=== PATIENT | female | born 1995 | race Caucasian/White ===

== ENCOUNTER 2018-02-09 16:43 | Outpatient (CLI) | END 2018-02-09 17:50 | disposition home or self-care (01) ==

== ENCOUNTER 2018-04-09 08:56 | Inpatient (IN) | END 2018-04-14 15:11 | disposition home or self-care (01) | DRG 766 ==

== ENCOUNTER 2018-05-06 21:41 | Emergency (ER) | END 2018-05-07 01:33 | disposition home or self-care (01) ==

== ENCOUNTER 2018-06-01 12:57 | Emergency (ER) | END 2018-06-01 17:30 | disposition home or self-care (01) ==

== ENCOUNTER 2018-09-30 09:43 | Emergency (ER) | END 2018-09-30 12:08 | disposition home or self-care (01) ==

== ENCOUNTER 2019-05-20 01:10 | Inpatient (IN) | payer OTHER ==
[~2019-05-20] VITALS: Ht 162.6 cm; Wt 86.5 kg
[~2019-05-20 01:10] MED LIST: ACET500C5 PO; AMOX1TAB10 PO; CEPH-443 PO; FER325 PO; IBUP-1542 PO; PREN-93 PO
[2019-05-20 01:21] VITALS: Ht 162.6 cm; Wt 86.5 kg
[2019-05-20] MEDS ORDERED: LACTATED RINGER'S 1,000 ML IV SCH (01:31)
[2019-05-20] MEDS ORDERED: CEFAZOLIN 2 GM/50 ML (PMX) 50 ML IVPB SCH (02:00)
[2019-05-20] MEDS ORDERED: MISOPROSTOL 200 MCG TAB PR PRN ×2 (02:00→18:00)
[2019-05-20] MEDS ORDERED: OXYTOCIN 30 UNITS/LR 500 ML IV SCH ×2 (02:00→17:49)
[2019-05-20] MEDS ORDERED: CARBOPROST 250 MCG INJ IM PRN ×2 (02:00→18:00)
[2019-05-20] MEDS ORDERED: METHYLERGONOVINE 0.2 MG INJ IM PRN ×2 (02:00→18:00)
[2019-05-20] MEDS ORDERED: OXYTOCIN 30 UNITS/LR 500 ML IV PRN ×2 (02:00→18:00)
[2019-05-20] MEDS ORDERED: ACETAMINOPHEN 325 MG TAB PO ONE (05:30)
--- NOTE | 2019-05-20 07:11 | PREAC ---
Date/Time of Note Date/Time of Note DATE: 05/20/19 TIME: 07:09 Anesthesia Eval and Record Evaluation Time Pre-Procedure Interview DATE: 05/20/19 TIME: 07:09 Age 23 Sex female NPO: 8 hrs Preoperative diagnosis iup at 39 weeks Planned procedure repeat c section Past Medical History Past Medical History: Includes GI: Obesity Heme: Anemia Surgery & Anesthesia Issues No known issue Meds Anticoagulation: No Beta Rossy within 24 hr: No Reason Beta Rossy not given: Pt. not on B-Rossy Active Scripts Cephalexin* (Keflex*) 500 Mg Capsule, 500 MG PO QID for 7 Days, CAP Prov:RICHMOND PULIDO PA-C 09/30/18 Amoxicillin/Potassium Clav (Amox-Clav 875-125 mg Tablet) 875-125 mg Tab, 1 TAB PO BID for 7 Days, #14 TAB Prov:RAFFI MAS MD 06/01/18 Acetaminophen* (Tylophen*) 500 Mg Capsule, 1 CAP PO Q6H PRN for PAIN AND OR ELEVATED TEMP, #15 CAP Prov:RAFFI MAS MD 06/01/18 Ibuprofen* (Motrin*) 600 Mg Tab, 600 MG PO Q6, #15 TAB Prov:RAFFI MAS MD 06/01/18 Ibuprofen* (Motrin*) 600 Mg Tab, 600 MG PO Q6, #30 TAB Prov:PATRICIA MCKENNA PA-C 05/07/18 Reported Medications Ferrous Sulfate* (Ferrous Sulfate*) 325 Mg Tabec, 325 MG PO DAILY, TAB 02/09/18 Vit No.124/Iron/FA ( Vitamin Tablet) 1 Each Tablet, 1 EACH PO DAILY, TAB 02/09/18 Current Medications Lactated Ringer's 1,000 ml @ 125 mls/hr Q8H IV Last administered on 05/20/19at 02:04; Admin Dose 125 MLS/HR; Start 05/20/19 at 01:31 Cefazolin Sodium/ Dextrose 50 ml @ 100 mls/hr ONCE IVPB ; Start 05/20/19 at 02:00 Oxytocin/Lactated Ringer's 500 ml @ 125 mls/hr POST IV ; Start 05/20/19 at 02:00 Oxytocin/Lactated Ringer's 500 ml @ 0 mls/hr ONCE PRN IV .VAGINAL BLEEDING; Start 05/20/19 at 02:00 Methylergonovine Maleate (Methergine) 0.2 mg ONCE PRN IM .VAGINAL BLEEDING; Start 05/20/19 at 02:00 Carboprost Tromethamine (Hemabate) 250 mcg ONCE PRN IM .VAGINAL BLEEDING; Start 05/20/19 at 02:00 Misoprostol (Cytotec) 1,000 mcg ONCE PRN WI .VAGINAL BLEEDING; Start 05/20/19 at 02:00 Meds reviewed: Yes Allergies Coded Allergies: No Known Allergy (Unverified , 02/09/18) Allergies Reviewed: Yes Labs/Studies Labs Reviewed: Reviewed by anesthesiologist Result Diagram: 05/20/19 0155 Laboratory Tests 05/20/19 01:55 Blood Bank Test 05/20/19 01:55 Antibody Screen NEGATIVE Blood Type O POSITIVE Rh Immune Globulin Candidate NO test: Positive Pre-procedure Exam Airway: Adequate mouth opening, Adequate thyromental dist Mallampati: Mallampati I Teeth: Normal Lung: Normal Heart: Normal ASA Physical Status ASA physical status: 2 Emergency: None Planned Anesthetic Neuraxial: Spinal Planned Pain Management Sub-arachniod narcotics, Parenteral pain med Pre-operative Attestations Prior to commencing anesthesia and surgery, the patient was re-evaluated, there was verification of: *The patient's identity *The results of appropriate recent lab work and preoperative vital signs *The above evaluation not changing prior to induction *Anesthetic plan, risk benefits, alternative and complications discussed with patient/family; questions answered; patient/family understands, accepts and wishes to proceed. RONAK DEJESUS May 20, 2019 07:10
[2019-05-20] MEDS ORDERED: morphine SULFATE/PF (10 MG/10 ML) INJ ONE (07:31)
[2019-05-20] MEDS ORDERED: FENTAnyl 50 MCG/ML VIAL ONE (07:31)
[2019-05-20] MEDS ORDERED: AZITHROMYCIN 500 MG in SOD CHLORIDE 0.9% 250 ML IVPB STA (07:40)
[2019-05-20] MEDS ORDERED: DEXAMETHASONE 4 MG/ML 1 ML INJ ONE (07:42)
[2019-05-20] MEDS ORDERED: ONDANSETRON 4 MG INJ ONE (07:42)
--- NOTE | 2019-05-20 07:52 | HP ---
Date/Time of Note Date/Time of Note DATE: 05/20/19 TIME: 07:45 OB - History Hx of Present Free Text/Dictation 23 years old 2 para 1-0-0-1 with single intrauterine at 39 weeks 1 day with history of previous delivery complaining of uterine contractions. She states good movement. She denies nausea, vomiting, shortness of breath, chest pain, headache, visual changes, vaginal bleeding or LOF. Chief Complaint: History of previous delivery complaining of uterine contractions Estimated Due Date: May 26, 2019 : 2 Para: 1 Spontaneous : 0 Therapeutic : 0 Care: Good Care Ultrasounds: Normal mid trimester US Obstetrical Complications: None Medical Complications: None Past Family/Social History * Past Medical, Surgical, Family and Obstetric Histories reviewed from chart. Blood Type: O+ Rubella: immune RPR/VDRL: Negative (Immune) GBS Status: Positive HBsAG: Negative OB Admission Exam Vital Signs Vital Signs Blood pressure 110/62, pulse rate 70/minutes, respiratory rate 16/minutes, temperature 98.1 Physical Exam HEENT: WNL Heart: Rhythm Normal Lungs: Clear Abdomen: WNL Extremities: Normal Cervical Dilatation: 4cm (24 5 cm) Effacement: 75% Station: -2 Membranes: Intact Heart Rate: 130's Accelerations: Accelerations Present Decelerations: No Decelerations Varibility: Moderate Contractions on Admission: < 5 Minutes Apart (To 5 cm) Intensity: Moderate Last 72 hours Lab Results CBC & BMP 05/20/19 01:55 OB Assessment/Plan Other plan: 23 years old 2 para 1-0-0-1 with previous delivery in labor. She desires repeat delivery. She declined TOLAC. -FHR: No sign of metabolic acidosis- Category I -Continuous EFM, toco -CBC, blood type and screen -Vaginal prep with Betadine -Ancef 2 g IV 30 minutes before surgery and a azithromycin 500 mg IV -Please see the orders -O+/Rubella: Immune -GBS: Positive, ampicillin given The risk of delivery including but not limited to bleeding, infection, injury to other organs (bowel, bladder, ureter, vessels, nerves), injury to fetus, blood transfusion, blood transfusion related infection, risk of anesthesia, adhesion, needs for future , removal of uterus or any other indicated surgery was discussed with the patient and her family. She expressed understanding. All of her questions were answered. She signed the informed consent. PHYSICIAN'S VERIFICATION OF INFORMED CONSENT The patient was counseled regarding the procedure, its indications, risks, potential complications and alternatives and any questions were answered. Consent was obtained. PLANNED PROCEDURE/TREATMENT: delivery with possible using vacu um/forceps and any other indicated surgery PHYSICIAN'S VERIFICATION OF INFORMED CONSENT FOR BLOOD TRANSFUSION: There is a reasonable possibility that blood transfusion will be necessary as a result of the patient's procedure. I have discussed the following with the patient/patient's legal field sales representative: An explanation of the benefits and risks of the transfusion of blood or blood products and the possible alternatives. All questions have been answered to the patient's satisfaction. INFORMED CONSENT:The patient has been informed of: The nature of the proposed care, treatment, services, medications, interventions or procedures. Potential benefits, risks or side effects, including potential problems related to recuperation. The likelihood of achieving care treatment and service goals. Reasonable alternatives to the proposed care, treatment and service. The relevant risks, benefits and side effects related to alternatives, including the possible results of not receiving care, treatment and services. When indicated, any limitations on the confidentiality of information learned from or about the patient. If appropriate, the risks, benefits and alternatives of the drugs to be used for sedation/analgesia including moderate sedation. If appropriate, patient has been provided information on the risks, benefits and alternatives to the transfusion of blood and/or blood products. If appropriate, patient has been provided information regarding the [employer] Blood Act. GERMAIN RUBIO May 20, 2019 07:52
[2019-05-20] MEDS ORDERED: PHENYLephrine (100 MCG/ML) 10ML SYG ONE (08:03)
[2019-05-20] MEDS ORDERED: NALOXONE (0.4 MG/ML) INJ IV PRN (09:00)
[2019-05-20] MEDS ORDERED: HYDROmorphONE 0.5 MG/0.5 ML SYG IV PRN ×2 (09:00)
[2019-05-20] MEDS ORDERED: DIPHENHYDRAMINE 50 MG INJ IV PRN (09:00)
[2019-05-20] MEDS ORDERED: ONDANSETRON 4 MG INJ IV PRN (09:00)
[2019-05-20] MEDS ORDERED: ZOLPIDEM 5 MG TAB PO PRN (09:00)
[2019-05-20] MEDS ORDERED: KETOROLAC 30 MG INJ IV PRN (09:00)
--- NOTE | 2019-05-20 09:49 | OPR ---
Operative Report Planned Procedure Procedure date May 20, 2019 Procedure(s) Repeat low transverse delivery Performed by see signature line Disease And Insect Control Boss: DARON SOSA MD Anesthesiologist: RONAK DEJESUS Pre-procedure diagnosis 23 years old 2 para 1-0-0-1 with single intrauterine at the 39 weeks and 1 day and previous delivery in labor. She desires a repeat delivery. She declined TOLAC [id number] Anesthesia Type: [id number] spinal Post-Procedure Post-procedure diagnosis 23 years old 2 para 1-0-0-1 with single intrauterine at the 39 weeks and 1 day and previous delivery in labor. She desires a repeat delivery. She declined TOLAC Findings 1. Normal uterus, fallopian tubes and ovaries 2. Viable female in cephalic presentation. 9 at one minute and 9 in 5 minutes. Weight: 7 pounds 14 oz-3575 g. Time of delivery: 08: 05 3. Placenta with three vessel cord 4. Amniotic fluid - Clear Estimated Blood Loss: 500 - 600 mls Specimen(s) none Grafts/Implant(s) none Complication(s) none Pt Condition post procedure: stable Disposition: PACU Procedure Description INDICATION AND HISTORY: A 23 years old 2 para 1-0-0-1 with single intrauterine at the 39 weeks and 1 day and previous delivery in labor. She desires a repeat delivery. She declined TOLAC. The risk of delivery including but not limited to bleeding, infection, injury to other organs (bowel, bladder, ureter, vessels, nerves), injury to fetus, blood transfusion, blood transfusion related infection, risk of anesthesia, adhesion, needs for future , removal of uterus or any other indicated surgery was discussed with the patient and her family. She expressed understanding. All of her questions were answered. She signed the informed consent. DESCRIPTION OF OPERATION: The patient was taken to the operating room, where she was identified and the procedure was verified. The patient received two gram of Ancef 30 minutes prior to surgery and 500 mg azithromycin. Spinal anesthesia was placed by anesthesiologist. The patient placed in the dorsal supine position with a left tilt. The heart rate was 130 bpm. The patient was then prepped and draped in the normal sterile fashion. A Pfannenstiel skin incision was made and carried down to the fascia with Bovie. The fascia was incised in the midline and the fascial incision was carried laterally with Bovie. The superior portion of the fascial incision was then grasped with Laura clamps and tented up and dissected off the underlying rectus muscle with sharp dissection. The lower portion of the fascial incision was then made in a similar fashion. The rectus muscle was and the peritoneum was entered. The peritoneal incision was then stretched and a bladder blade was inserted. Then, an incision was made in the lower uterine segment in a transverse fashion with a knife and extended bluntly. The was delivered atraumatically in cephalic presentation with the above findings. The umbilical cord was clamped and cut. The neonatology resuscitation team was present and the baby was handed to them. A cord blood sample was obtained for further evaluation. The placenta and membrane, which appeared normal were Removed. The uterus was exteriorized and cleared of all clot and debris. The uterus was then closed in a two layer fashion with 0-Monocryl. At the time of closure, hemostasis was noted. The gutters were irrigated. The peritoneum was reapproximated with 3-0 Vicryl. The muscle was reapproximated with 3-0 Vicryl. The fascia was approximated with 0- Vicryl in a running fashion. The subcutaneous tissue was re approximated with 3- 0 vicryl. The skin was closed with 4-0 Monocryl. All instruments, sponges and needle counts were correct x3. The patient tolerated the procedure well. She transferred to the recovery room in stable condition. GERMAIN RUBIO May 20, 2019 09:49
[2019-05-20] MEDS ORDERED: ONDANSETRON 4 MG INJ IV STA (10:14)
[2019-05-20 17:45] VITALS: BP 100/57; PULSE 68; RESP 16
[2019-05-20] MEDS: DEXTROSE 5%-LR 1,000 ML IV SCH (17:49)
[2019-05-20] MEDS ORDERED: LANOLIN HPA 1 PKT TOP PRN (18:00)
[2019-05-20] MEDS ORDERED: ACETAMINOPHEN 500 MG TAB PO PRN (18:00)
[2019-05-20] MEDS ORDERED: METHYLERGONOVINE 0.2 MG TAB PO PRN (18:00)
[2019-05-20 19:35] VITALS: BP 96/53; PULSE 81; RESP 18
[2019-05-20] MEDS: SENNA/DOCUSATE NA (8.6MG/50MG) TAB PO SCH (21:06)
--- NOTE | 2019-05-20 22:10 | PAC ---
Date/Time of Note Date/Time of Note DATE: 05/20/19 TIME: 22:10 Post-Anesthesia Notes Post-Anesthesia Note Last documented vital signs Vital Signs Date Temp Pulse Resp B/P (MAP) Pulse Ox O2 O2 Flow FiO2 Time Delivery Rate 05/20/19 98.2 81 18 96/53 (67) Room Air 2105 05/20/19 96 17:45 Activity: WNL Respiratory function: WNL Cardiovascular function: WNL Mental status: Baseline Pain reasonably controlled: Yes Hydration appropriate: Yes Nausea/Vomiting absent: Yes RONAK DEJESUS May 20, 2019 22:10
[2019-05-21] VITALS: BP 98/54; RESP 18
[2019-05-21] MEDS: DEXTROSE 5%-LR 1,000 ML IV SCH (00:29)
[2019-05-21 05:00] VITALS: BP 96/52; PULSE 82; RESP 18
[2019-05-21 08:00] VITALS: BP 94/53; PULSE 84; RESP 16
[2019-05-21] MEDS ORDERED: HYDROCODONE/APAP (5/325) TAB PO PRN ×2 (08:30→09:30)
[2019-05-21] MEDS: FERROUS SULFATE (EC) 325 MG TAB PO SCH (08:31)
[2019-05-21] MEDS: SENNA/DOCUSATE NA (8.6MG/50MG) TAB PO SCH ×2 (08:31→21:35)
[2019-05-21] MEDS: MAGNESIUM HYDROXIDE 30ML CUP PO SCH (08:31)
[2019-05-21] MEDS ORDERED: DIPHTH/TET/ACEL PERTUSS (ADULT) 0.5 ML VIAL IM* ONE (11:00)
--- NOTE | 2019-05-21 11:18 | QN ---
Documentation Comment Postop day #1 Status post repeat Patient stable and afebrile Positive flatus and voiding and tolerating regular diet and ambulating Vital signs stable VS - Last 72 Hours, by Label Date Temp Pulse Resp B/P (MAP) Pulse Ox O2 O2 Flow FiO2 Time Delivery Rate 05/21/19 98.0 82 18 96/52 (67) 95 Room Air 05:00 05/21/19 98.1 18 98/54 (69) 97 Room Air 00:00 05/20/19 98.2 81 18 96/53 (67) Room Air 19:35 05/20/19 98.2 68 16 100/57 96 Room Air 17:45 (71) Hematology - 72 Hrs Test 05/20/19 01:55 05/21/19 07:00 Hematocrit 30.9 % (37.0-47.0) #L 27.7 % (37.0-47.0) L Hemoglobin 9.4 g/dl (12.0-16.0) #L 8.3 g/dl (12.0-16.0) L Mean Corpuscular 26.0 pg (29.0-33.0) L 25.7 pg (29.0-33.0) L Hemoglobin Mean Corpuscular 30.4 g/dl (32.0-37.0) L 30.0 g/dl (32.0-37.0) L Hemoglobin Concent Mean Corpuscular Volume 85.4 fl (82.0-101.0) 85.8 fl (82.0-101.0) Mean Platelet Volume 10.0 fl (7.4-10.4) 10.0 fl (7.4-10.4) Platelet Count 205 10^3/UL (140-415) 175 10^3/UL (140-415) Red Blood Count 3.62 10^6/ul (4.20-5.40) 3.23 10^6/ul (4.20-5.40) L L Red Cell Distribution 14.8 % (11.5-14.5) H 14.8 % (11.5-14.5) H Width White Blood Count 8.6 10^3/ul (4.8-10.8) 12.8 10^3/ul (4.8-10.8) #H Abdomen soft, fundus firm Incision clean,dry,intact Extremities nontender Assessment and plan Patient stable and doing well Encouraged to ambulate Continue with routine postop care DARON SOSA MD May 21, 2019 11:18
[2019-05-21] MEDS ORDERED: IBUPROFEN 600 MG TAB PO SCH ×2 (12:00)
[2019-05-21] MEDS: IBUPROFEN 800 MG TAB PO SCH ×2 (13:57→21:37)
[2019-05-21] MEDS ORDERED: HYDROCODONE/APAP (5/325) TAB GTB SCH (14:00)
[2019-05-21 15:50] VITALS: BP 101/53; PULSE 86; RESP 16
[2019-05-21] MEDS: HYDROCODONE/APAP (5/325) TAB PO PRN (16:50)
[2019-05-21 21:41] VITALS: BP 97/56; PULSE 87; RESP 20
[2019-05-22 00:30] VITALS: BP 112/75; PULSE 56; RESP 20
[2019-05-22] MEDS: DEXTROSE 5%-LR 1,000 ML IV SCH ×2 (01:49→09:49)
[2019-05-22 04:00] VITALS: BP 96/65; PULSE 53; RESP 20
[2019-05-22] MEDS: IBUPROFEN 800 MG TAB PO SCH ×3 (06:27→21:51)
[2019-05-22 08:00] VITALS: BP 92/50; PULSE 84; RESP 18
[2019-05-22] MEDS: SENNA/DOCUSATE NA (8.6MG/50MG) TAB PO SCH ×2 (09:06→21:51)
[2019-05-22] MEDS: MAGNESIUM HYDROXIDE 30ML CUP PO SCH (09:06)
[2019-05-22] MEDS: FERROUS SULFATE (EC) 325 MG TAB PO SCH (09:06)
[2019-05-22] MEDS: HYDROCODONE/APAP (5/325) TAB PO PRN (11:47)
[2019-05-22 12:25] VITALS: BP 97/57; PULSE 86; RESP 18
[2019-05-22] MEDS ORDERED: LACTATED RINGER'S 1,000 ML IV ONE (14:30)
--- NOTE | 2019-05-22 14:46 | OPPN ---
Date/Time of Note Date/Time of Note DATE: 05/22/19 TIME: 14:45 Anesthesia Follow up Anesthesia Follow up Last documented vital signs Vital Signs Date Temp Pulse Resp B/P (MAP) Pulse Ox O2 O2 Flow FiO2 Time Delivery Rate 05/22/19 Room Air 12:08 05/22/19 98.3 84 18 92/50 (64) 08:00 05/22/19 98 04:00 Respiratory function: WNL Cardiovascular function: WNL Comments satisfactory pain control with intrathecal duramorph RONAK DEJESUS May 22, 2019 14:46
--- NOTE | 2019-05-22 16:20 | DS ---
Date/Time of Note Date/Time of Note DATE: 05/22/19 TIME: 16:18 Obstetrical Discharge Record Final Diagnosis Final Diagnosis: Term delivered Other Final Diagnosis Date of admission 05/20/2019 soil [place] [id number] 1. [id number] G2, P2 presented at 39 weeks and 1 day with a history of previous section for repeat section. prior to discharge she was ambulating, tolerating regular diet, passing flatus, breast feeding, lochia within normal limits. she denied chest pain or shortness of breath. her incision was clean /dry/intact. her lungs were clear to auscultation bilaterally. Her heart had a regular rate and rhythm. Her fundus was below the level of the umbilicus. Her extremities were nontender to palpation. She was advised to follow-up in 1 week for an incision check. 2. Acute blood lossferrous sulfate 3. GBS positive-status post antibiotics. Vital Signs Date Temp Pulse Resp B/P (MAP) Pulse Ox O2 O2 Flow FiO2 Time Delivery Rate 05/22/19 98.1 86 18 97/57 (70) 97 12:25 05/22/19 Room Air 12:08 Laboratory Tests Test 05/21/19 07:00 05/22/19 14:33 Hematocrit 27.7 % 28.4 % Hemoglobin 8.3 g/dl 8.3 g/dl Platelet Count 175 10^3/UL 204 10^3/UL White Blood Count 12.8 10^3/ul 9.7 10^3/ul Condition on Discharge Physical Assessment Patient Condition: Stable MIKEY BOONE MD May 22, 2019 16:20
[2019-05-22 16:45] VITALS: BP 94/56; PULSE 82; RESP 20
[2019-05-22 19:52] VITALS: BP 98/53; PULSE 89; RESP 18
[2019-05-23] MEDS: HYDROCODONE/APAP (5/325) TAB PO PRN (00:13)
[2019-05-23 04:07] VITALS: BP 97/56; PULSE 77; RESP 18
[2019-05-23] MEDS: IBUPROFEN 800 MG TAB PO SCH ×2 (05:38→13:51)
[2019-05-23 08:00] VITALS: BP 90/56; PULSE 74; RESP 16
[2019-05-23 08:15] VITALS: BP 90/56; PULSE 66; RESP 18
[2019-05-23] MEDS: SENNA/DOCUSATE NA (8.6MG/50MG) TAB PO SCH (08:45)
[2019-05-23] MEDS: MAGNESIUM HYDROXIDE 30ML CUP PO SCH (08:45)
[2019-05-23] MEDS: FERROUS SULFATE (EC) 325 MG TAB PO SCH (08:45)
[2019-05-23] MEDS ORDERED: DIPHTH/TET/ACEL PERTUSS (ADULT) 0.5 ML VIAL IM* ONE (09:00)
[2019-05-23] MEDS ORDERED: MEASLES,MUMPS,RUBELLA VACCINE INJ SC* ONE (09:00)
[2019-05-23 16:00] VITALS: BP 92/58; PULSE 77; RESP 18
--- NOTE | 2019-05-24 17:01 | DELSUM ---
Delivery Summary A-C Datetime Report Generated by CPN: 05/24/2019 17:01 DELIVERY PERSONNEL Link Wire Fabric Machine Tender: Flaco, Ellen MATERNAL INFORMATION Delivery Anesthesia: Spinal Medications in Delivery: see Anesthesia Flowsheet Delivery QBL (ml): 500 Placenta Cultured: No Maternal Complications: None LABOR SUMMARY EDC: 05/26/2019 00:00 No. Babies in Womb: 1 Attempted: No Labor Anesthesia: None LABOR INFORMATION Reason for Induction: Not Applicable Group B Beta Strep: Positive Antibiotics # of Doses: X2 (ANCEF 2G AND ZITHROMAX 500MG) Antibiotics Time of Last Dose: 05/20/2019 07:59 Steroids Given: None Reason Steroids Not Administered: Not Applicable MEMBRANES Membranes Rupture Method: Spontaneous Rupture of Membranes: 05/20/2019 00:30 Length of Rupture (hr): 7.58 Amniotic Fluid Color: Clear Amniotic Fluid Amount: Moderate Amniotic Fluid Odor: None STAGES OF LABOR Stage 3 hr: 0 Stage 3 min: 2 CSECTION DELIVERY Primary Indication: Repeat Elective Secondary Indication: N/A CSection Urgency: Elective CSection Incidence: Repeat Labor: No Labor Elective: Elective CSection Incision: Lower Uterine Transverse BABY A INFORMATION Delivery Date/Time: 05/20/2019 08:05 Method of Delivery: Born in Route : No : N/A Forceps: N/A Vacuum Extraction: N/A Shoulder Dystocia : N/A SHOULDER DYSTOCIA BABY A Delivery Date/Time: 05/20/2019 08:05 PRESENTATION/POSITION BABY A Presentation: Cephalic Cephalic Presentation: Vertex Vertex Position: Right Occipital Anterior Breech Presentation: N/A PLACENTA INFORMATION BABY A Placenta Delivery Time : 05/20/2019 08:07 Placenta Method of Delivery: Manual Removal Placenta Status: Delivered SCORES BABY A Heart Rate 1 min: >100 bpm Resp Effort 1 min: Good Cry Reflex Irritability 1 min: Cough/Sneeze/Pulls Away Muscle Tone 1 min: Active Motion Color 1 min: Body Chama, Extremit Blue Resuscitation Effort 1 min: Tactile Stimulation SCORE 1 MIN: 9 Heart Rate 5 min: >100 bpm Resp Effort 5 min: Good Cry Reflex Irritability 5 min: Cough/Sneeze/Pulls Away Muscle Tone 5 min: Active Motion Color 5 min: Body Chama, Extremit Blue Resuscitation Effort 5 min: Tactile Stimulation SCORE 5 MIN: 9 INFANT INFORMATION BABY A Gestational Age at Delivery: 39.1 Gestational Status: Full Term- 39- 40.6 Weeks Infant Outcome : Liveborn, with signs of life Infant Condition : Stable Sex: Female IDENTIFICATION/MEDS BABY A ID Band Number: [id number] ID Band Location: Right Leg; Left Arm Sensor Applied: Yes Sensor Number: [id number] Sensor Location : Cord Clamp Vitamin K Given : Not Given Erythromycin Given: Not Given WEIGHT/LENGTH BABY A Birthweight (gm): 3575 Infant Weight (lb): 7 Infant Weight (oz): 14 Length (in): 20.00 Infant Length (cm): 50.80 CORD INFORMATION BABY A No. Cord Vessels: 3 Nuchal Cord : N/A Cord Blood Taken: Yes Infant Suction: Mouth; Nose ASSESSMENT BABY A Infant Complications: Multiple Variable Decels Physical Findings at Delivery: Within Normal Limits Infant Respirations: Appears Normal Senior Tax Manager/ALS Called : No Infant Care By: BRANDON Transferred To: Remains with Mother
== END 2019-05-23 17:01 | disposition home or self-care (01) | DRG 788 ==
LOC: L-D 01:10 → PP1 17:24
PROVIDERS: ADMIT Obstetrics & Gynecology; ATTEND Obstetrics & Gynecology
PROC: 3E033VJ Introduction of Other Hormone into Peripheral Vein, Percutaneous Approach (ICD-10-PCS; 2019-05-20)
PROC: 10D00Z1 Extraction of Products of Conception, Low, Open Approach (ICD-10-PCS; principal; 2019-05-20 08:00)
DX: O65.5 Obstructed labor due to abnormality of maternal pelvic organs (principal); O34.211 Maternal care for low transverse scar from previous cesarean delivery; Z3A.39 39 weeks gestation of pregnancy; Z37.0 Single live birth
CPT/HCPCS: 80307; 85025; 85610; 85730; 86592; 86850; 86900; 86901; 87340; 99464; J0456; J0690; J1100; J2274; J2370; J2405; J2590; J3010; J7050; J7120; J7121